=== PATIENT | male | born 1990 | race Caucasian/White ===

== ENCOUNTER 2024-11-09 19:33 | Emergency (ER) | payer SELFPAY ==
[~2024-11-09] VITALS: Ht 188 cm; Wt 79.4 kg
[2024-11-09] MEDS ORDERED: KETOROLAC TROMETHAMINE INJ 30 MG/ML VIAL ONE (22:26)
[2024-11-09] MEDS ORDERED: CYCLOBENZAPRINE 10 MG TABLET ONE (22:26)
[2024-11-09] MEDS ORDERED: ONDANSETRON 4 MG TAB.RAPDIS ONE (22:26)
[2024-11-09] MEDS: KETOROLAC TROMETHAMINE INJ 30 MG/ML VIAL IM ONE (22:27)
[2024-11-09] MEDS: ONDANSETRON 4 MG TAB.RAPDIS SL ONE (22:27)
[2024-11-09] MEDS: CYCLOBENZAPRINE 10 MG TABLET PO ONE (22:27)
[2024-11-09 22:53] VITALS: BP 162/107; TEMP 99.2; O2SAT 99
[2024-11-09] MEDS ORDERED: CYCL5TAB PO (23:07)
== END 2024-11-09 23:10 | disposition home or self-care (01) ==
LOC: ER 19:35
DX: M54.50 Low back pain, unspecified (principal); Z87.19 Personal history of other diseases of the digestive system; Z60.2 Problems related to living alone
CPT/HCPCS: 99283; 96372; J1885; Q0162